=== PATIENT | male | born 2000 | race African-American/Black ===

== ENCOUNTER 2023-05-29 11:18 | Emergency (ER) | payer MEDICAID ==
[~2023-05-29] VITALS: Ht 175.3 cm; Wt 59.0 kg
[2023-05-29 11:27] VITALS: BP 132/91; O2SAT 99
[2023-05-29] MEDS ORDERED: TOPUD MT (12:13)
[2023-05-29 12:32] VITALS: PULSE 68; RESP 14; TEMP 98
== END 2023-05-29 12:34 | disposition home or self-care (01) ==
LOC: ER 11:18
DX: S06.0X0A Concussion without loss of consciousness, initial encounter (principal); X58.XXXA Exposure to other specified factors, initial encounter; Y93.89 Activity, other specified; Y92.89 Other specified places as the place of occurrence of the external cause; Y99.8 Other external cause status
CPT/HCPCS: 99282